=== PATIENT | male | born 1975 | race Two or more races ===

== ENCOUNTER 2020-08-29 11:09 | Inpatient (IN) | payer OTHER ==
[~2020-08-29] VITALS: Ht 172.7 cm; Wt 66.7 kg
[2020-08-31] MEDS ORDERED: ST. JOSEPH ASPI81 M2 PO (14:44)
[2020-08-31] MEDS ORDERED: LIPITOR20 MG PO (14:44)
[2020-08-31] MEDS ORDERED: CLOPIDOGREL BIS75 MG PO (14:44)
== END 2020-08-31 15:05 | disposition home or self-care (01) | DRG 66 ==
LOC: ER 11:09 → MEDJ 19:26 → SEC-K 19:26 → MEDJ 22:44
PROVIDERS: ADMIT Internal Medicine; ATTEND Internal Medicine
PROC: BW28ZZZ Computerized Tomography (CT Scan) of Head (ICD-10-PCS; principal; 2020-08-29)
PROC: 3E0F7SF Introduction of Other Gas into Respiratory Tract, Via Natural or Artificial Opening (ICD-10-PCS; 2020-08-29)
PROC: B345ZZZ Ultrasonography of Bilateral Common Carotid Arteries (ICD-10-PCS; 2020-08-30)
PROC: B348ZZZ Ultrasonography of Bilateral Internal Carotid Arteries (ICD-10-PCS; 2020-08-30)
PROC: B24BZZZ Ultrasonography of Heart with Aorta (ICD-10-PCS; 2020-08-30)
PROC: B030ZZZ Magnetic Resonance Imaging (MRI) of Brain (ICD-10-PCS; 2020-08-30)
DX: I63.81 Other cerebral infarction due to occlusion or stenosis of small artery (principal); R47.81 Slurred speech; R47.1 Dysarthria and anarthria; Z20.822 Contact with and (suspected) exposure to COVID-19
CPT/HCPCS: 70551